=== PATIENT | female | born 2000 | race Caucasian/White ===

== ENCOUNTER 2025-02-16 20:12 | Emergency (ER) | payer BC, SELFPAY ==
[2025-02-16 20:22] VITALS: BP 143/102
[2025-02-16 21:18] LABS: Hematocrit 42.4 % (37.0-47.0); Hemoglobin 15.0 g/dL (12.0-16.0); Mean Corp Hgb Conc. 35.4 g/dL (33.0-37.0); Mean Corpuscular Volume 89.6 fL (81.0-99.0); Nucleated Red Blood Cells % 0 %; Platelet Count 321 10^3/uL (130-400); Red Cell Dist. Width 11.6 % (11.5-14.5)
[2025-02-16 21:33] LABS: HCG, Serum Qualitative Screen Negative
[2025-02-16 21:44] LABS: ALT (SGPT) 17 U/L (0-35); AST (SGOT) 28 U/L (14-36); Albumin 4.8 g/dl (3.5-5.0); Alkaline Phosphatase 83 U/L (38-126); Blood Urea Nitrogen 14 mg/dl (7-17); Calcium 10.1 mg/dl (8.4-10.2); Carbon Dioxide 26 mmol/L (22-30); Chloride 102 mmol/L (98-107); Glucose 115 mg/dl (70-99); Potassium 4.3 mmol/L (3.5-5.1); Sodium 136 mmol/L (135-145); Total Protein 7.7 g/dl (6.3-8.2); eGFR > 60.00
--- NOTE | 2025-02-16 23:20 | ED.GENMED ---
History of Present Illness
General
Chief Complaint: Headache
Source: patient
Exam Limitations: none
Time Seen by Provider: 02/16/25 23:07
Nursing documentation reviewed up to this point in time: agreed with
History of Present Illness
History of Present Illness:
Note:
CHIEF COMPLAINT(S)
Atypical migraine episodes with visual disturbances and sensory changes.
HISTORY OF PRESENT ILLNESS
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 She reports that her migraines usually begin with a loss of peripheral vision followed by the appearance of an
aura, primarily affecting her left eye more than her right. However, todays episode was slightly different as it started with a bright light sensation, like looking at the sun, without the usual complete loss of peripheral vision. The patient felt
tingling sensations in her hands and arm, spreading to her face, particularly affecting the lower part of her face, which she described as feeling �weird� and like she couldn�t feel herself smile. She reports that this episode lasted approximately
30 minutes. She took her aleve which she reports stopped the migraine in the course.
The patient has experienced these migraine episodes about once a year, with the last occurring in September this year. She manages her symptoms with immediate intake of ibuprofen (Aleve) and by staying hydrated. The migraine headaches start after the
visual and sensory changes have already begun. During todays episode, she was at work and experienced some numbness in her feet, her arm, and her face.
She denies any focal neurological deficits, permanent visual loss, or balance issues outside of these episodes.
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 She has never seen a neurologist for these symptoms.
Her adolescent medicine physician told her that if these symptoms happen again, she needs to seek emergency care.
She is currently asymptomatic.
ALLERGIES
Anaphylactic reaction to tree nuts.
MEDICATIONS
The patient currently manages her migraines with ibuprofen (Aleve) as needed.
PHYSICAL EXAM
General: Alert, no acute distress.
Skin: Warm, dry.
Head: Normocephalic, atraumatic.
Neck: Supple, trachea midline.
Eyes, Ears, Nose, Mouth, and Throat: Oral mucosa moist.
Cardiovascular: Regular rate and rhythm, no murmurs. Normal peripheral perfusion, no edema.
Respiratory: No wheezes, rales,or rhonchi. Respirations are non-labored.
Gastrointestinal: Abdomen nondistended.
Back: Normal range of motion, normal alignment.
Musculoskeletal: Normal range of motion, normal strength.
Neurological: CN II-XII intact. No focal neurologic deficits; normal mdvssb-td-[id number] testing; normal xete-dh-aocp maneuver; equal strength bilaterally.
Psychiatric: Cooperative, appropriate mood & affect.
PROBLEM LIST
Acute:
- Atypical migraine episode with visual disturbances and sensory changes.
PLAN
- Patient is advised to follow up with a neurologist for a comprehensive evaluation and potential MRI to further investigate atypical migraine episodes.
- Continue using ibuprofen (Aleve) for managing acute migraine symptoms.
- Reassess symptoms should they become more frequent or severe, or if new symptoms arise.
DIFFERENTIAL DIAGNOSIS
The Differential Diagnosis includes, in no particular order and is not limited to:
- Atypical migrainous aura
- Complex migraine
- Transient ischemic attack (TIA)
- Ophthalmic migraine
- Partial seizure
- Multiple sclerosis
- Intracranial vascular malformation
- Hypoglycemia
- Anxiety or panic disorder
- Encephalitis or meningitis (less likely given current presentation but to be considered if symptoms evolve)
Disposition:
SUMMARY OF ENCOUNTER
A 24-year-old female presented to the emergency department with concerns about an atypical migraine episode. Her symptoms included visual disturbances and sensory changes, which resolved with the use of ibuprofen (Aleve). She had previously been
diagnosed with atypical migraines by her student services representative several years ago. Her current doctor recommended visiting the emergency department if these symptoms reoccurred. A CT scan was performed, which showed no evidence of bleeding or acute
intracranial disease.
DISPOSITION
Discharge.
ASSESSMENT
Atypical migraine with visual disturbances and sensory changes.
PLAN
The patient was advised to continue using ibuprofen (Aleve) as needed for migraine management. It was suggested she follow up with a neurologist for a comprehensive evaluation and potential MRI.
INDEPENDENT REVIEW OF LABS AND INTERPRETATION OF TESTS
My independent interpretation of the CT head indicates no evidence of bleeding or acute intracranial disease.
FOLLOW-UP INSTRUCTIONS
The patient is advised to schedule a follow-up visit with a neurologist for further evaluation.
MEDICATION RECONCILIATION
Qkom-odp-uslpaqm ibuprofen (Aleve) as needed for migraine management.
MEDICAL DECISION MAKING
-Complexity of Data Reviewed: Chronic conditions affecting care include history of atypical migraines. Differential diagnosis includes atypical migrainous aura, complex migraine, transient ischemic attack (TIA), ophthalmic migraine, partial seizure,
multiple sclerosis, intracranial vascular malformation, hypoglycemia, anxiety or panic disorder, encephalitis or meningitis.
-Data:
Category 1: Non-emergency department records reviewed include her history with atypical migraines.
-Risk: Consideration of Admission/Observation: Escalation of care including admission/observation was considered given the complexity and risk of the patients presenting complaint. However, ultimately I feel the patient is safe for outpatient
management with close follow up. Reasoning: Work-up reassuring, does not reveal any acute life/organ-threatening processes, patients symptoms well controlled upon reevaluation, reexamination is reassuring, vitals are stable, patient agreeable with
discharge, reliable for follow-up.
DIAGNOSIS
- Atypical migraine with aura (G43.109)
Review of Systems
Review of Systems
All Other Systems: ROS reviewed and negative except as documented in HPI and ROS
Phy Exam
Physical Exam
Physical Exam:
see hpi
Course
Orders/Labs/Results
Orders:
Orders
02/16/25 20:[address] [CT Head W/o Iv Contrast] Urgent
Comment:
Reason For Exam: vision changes
Test Result ONCE
02/16/25 20:56
CBC/With Diff [Complete Blood Count/With Diff] Urgent
CMP [Comprehensive Metabolic Panel] Urgent
, Serum Qualitative Screen [HCG, Serum Qualitative Screen] Urgent
Abnormal Lab Results
02/16/25
20:56
MCH 31.7 H pg
(27.0-31.0)
Glucose 115 H mg/dl
(70-99)
02/16/25 20:56
02/16/25 20:56
Vital Signs
Initial and Last Documented VS:
Initial Vital Signs
Temp Pulse Resp BP Pulse Ox
98.2 F 97 15 143/102 999
02/16/25 20:22 02/16/25 20:22 02/16/25 20:22 02/16/25 20:22 02/16/25 20:22
Last Documented Vital Signs
Temp Pulse Resp BP Pulse Ox
98.2 F 88 16 123/80 99
02/16/25 20:22 02/16/25 23:37 02/16/25 23:37 02/16/25 23:37 02/16/25 23:37
*Pulse Oximetry
SaO2: 999
Oxygen Mode of Delivery: Room air
Patient hypoxic: no
*Critical Care Note
Total Time (30-74mins, 75-104mins- exclusive of procedures): Not Applicable
ED Attending Note
-
Portions of this chart may have been created with voice recognition software.� Occasional wrong word or��sound alike� substitutions may have occurred due to the inherent limitations of voice recognition software.
Discharge Plan
Departure
Patient Disposition: Home (Routine Discharge)
Date of Disposition: 02/16/25
Time of Disposition: 23:25
Patient with high blood pressure during this ER visit?: Yes
Condition: Good
Discharge Problem:
Atypical migraine
Instructions: Migraines (DC), BLOOD PRESSURE
Referrals:
Tammie Crystal MD [Non-Admitting Privileges, Neurology] - Call in 1-3 days for appt
NONE,* [Family Provider, Internal Medicine]
Activity Restrictions/Additional Instructions:
Please follow-up with your primary care provider. Please contact number to schedule evaluation with neurology with Dr. Crystal's office.
PLEASE RETURN FOR AN ACUTE WORSENING OF YOUR SYMPTOMS OR ANY OTHER SIGNS OR SYMPTOMS WORRISOME TO YOU
Interventions
Interventions:
*Risk Screen - Suicide Last Done: 02/16/25 20:22
*General Assessment Last Done: 02/16/25 20:22
*Neglect/Abuse Screening Last Done: 02/16/25 20:22
*ED- Fall Risk Assessment Last Done: 02/16/25 21:41
*ED COVID-19 Vaccine History Last Done: 02/16/25 20:22
*ED Influenza Vaccine History Last Done: 02/16/25 20:22
*Nursing Disposition Last Done: 02/16/25 23:37
ED- Neurological Assessment Last Done: 02/16/25 21:41
Discharge Date and Time
Discharge Date/Time: 02/16/25 23:38
Print Language: KHMER
[2025-02-16 23:35] VITALS: BP 123/80
[2025-02-16 23:37] VITALS: BP 123/80
== END 2025-02-16 23:38 | disposition home or self-care (01) ==
LOC: EMR 20:12
PROVIDERS: Emergency Medicine; EMERGENCY PHYSICIAN Student in an Organized Health Care Education/Training Program
DX: G43.109 Migraine with aura, not intractable, without status migrainosus (principal); Z91.018 Allergy to other foods
CPT/HCPCS: 99284; 70450; 80053; 84703; 85025